=== PATIENT | male | born 1980 | race Caucasian/White ===

== ENCOUNTER 2016-10-07 15:17 | Emergency (ER) | payer SELFPAY ==
[~2016-10-07] VITALS: Ht 167.6 cm; Wt 60.0 kg
[~2016-10-07 15:17] MED LIST: IBUP-232 PO; Z.0.NO CURRENT MEDS; ZITH500T PO
[2016-10-07 15:31] VITALS: BP 130/86; PULSE 76; RESP 24; TEMP 97.7; O2SAT 99
[2016-10-07] MEDS ORDERED: XANA2TAB2 PO (15:42)
--- NOTE | 2016-10-07 15:42 | PD ---
Physical Exam Date Seen by Provider: Oct 07, 2016 Time Seen by Provider: 15:38 Narrative 35 y/o male presents with laceration to right proximal middle finger from broken car door. Pain /10. Patient reports distal numbness and question decreased flexion. Unknown Last tetanus. V/S Stable. Bleeding controlled. Awaiting bed placement. Data Data Last Documented VS Vital Signs Date Time Temp Pulse Resp B/P Pulse Ox O2 Delivery O2 Flow Rate FiO2 10/07/16 15:31 97.7 76 24 130/86 99 Room Air [facility] Medical Record Reviewed: Yes Supervised Visit with ALTON: Yes Condition: Stable Rick Nogueira Oct 07, 2016 15:42
[2016-10-07] MEDS ORDERED: METH40TA PO (15:43)
--- NOTE | 2016-10-07 16:02 | PD ---
HPI Chief Complaint: Laceration/Skin Injury Time Seen by Provider: 16:02 Travel History International Travel<30 days: No Contact w/Intl Traveler<30days: No Traveled to known affect area: No History of Present Illness HPI 35-year-old male presents to the emergency Department with complaint of a laceration to his right third digit from opening a car door and handle breaking off and cutting his finger. Unknown tetanus vaccination status. Denies paresthesias, loss of sensation, decreased range of motion, decreased strength to the affected finger. Has applied a bandage and pressure to control bleeding. Has not taken any medications or tried any other treatments to repeat his symptoms. Has no other medical complaints. No other modifying factors or associated signs and symptoms. PFSH Past Medical History Asthma: Yes (exercise induced asthma) Anxiety: Yes Depression: Yes Tetanus Vaccination: Unknown Social History Alcohol Use: No Tobacco Use: No (quit) Substance Use: No Allergies-Medications (Allergen,Severity, Reaction): Coded Allergies: No Known Allergies (Verified , 06/09/09) Reported Meds & Prescriptions Reported Meds & Active Scripts Active Ibuprofen 800 Mg Tab 800 Mg PO Q6HR PRN Keflex (Cephalexin) 500 Mg Cap 500 Mg PO Q8H 7 Days Reported Methadone (Methadone HCl) 40 Mg Tab 40 Mg PO DAILY Xanax (Alprazolam) 2 Mg Tab 2 Mg PO BID PRN Review of Systems Except as stated in HPI: all other systems reviewed are Neg Physical Exam Narrative GENERAL: Well-nourished, well-developed male patient, in no acute distress SKIN: Warm and dry. Approximately 2 cm laceration to the ventral aspect of the right third digit between the MCP and PIP joints. Finger with full range of motion, sensory intact, and good opposition. Without erythema, edema. Minimal amount of bright red drainage. HEAD: Atraumatic. Normocephalic. EYES: Pupils equal and round. No scleral icterus. No injection or drainage. ENT: Mucosa pink and moist. Airway patent. NECK: Trachea midline. CARDIOVASCULAR: Regular rate. RESPIRATORY: No accessory muscle use. GASTROINTESTINAL: Flat. MUSCULOSKELETAL: No obvious deformities. No clubbing. No cyanosis. No edema. NEUROLOGICAL: Awake and alert. Oriented 3. No obvious cranial nerve deficits. Motor grossly within normal limits. Normal speech. PSYCHIATRIC: Appropriate mood and affect; insight and judgment normal. Data Data Last Documented VS Vital Signs Date Time Temp Pulse Resp B/P Pulse Ox O2 Delivery O2 Flow Rate FiO2 10/07/16 15:31 97.7 76 24 130/86 99 Room Air Orders Tetanus/Diphtheria Tox Adult (Tetanus/Di (10/07/16 16:15) Bupivacaine Pf 0.5% Inj (Marcaine Pf 0.5 (10/07/16 16:15) Lidocaine 1% Inj (50 Ml) (Xylocaine 1% I (10/07/16 16:15) MDM Medical Decision Making Medical Screen Exam Complete: Yes Emergency Medical Condition: Yes Medical Record Reviewed: Yes Differential Diagnosis Laceration, contusion, abrasion Narrative Course 35-year-old male with laceration to his right third digit. Tetanus updated in the ER. Fingers with full range of motion, sensory intact and good opposition. The my procedure note for laceration repair. Keflex and ibuprofen prescribed for home. Instructed patient to return to the emergency department or follow up primary care in 7-10 days for suture removal. Patient verbalizes understanding and agreement with treatment plan. Patient is medically cleared and stable for discharge. Discussed reasons to return to the emergency department. Instructed patient to follow up with primary care provider. Patient agrees with treatment plan. The patients vital signs are stable and the patient is stable for outpatient follow-up and treatment. Patient discharged home, stable and in no acute distress. Procedures Procedure Narrative LACERATION LOCATION: Ventral aspect of right third finger in between the MCP and PIP joints LENGTH: 2 cm NUMBER OF STITCHES/KAYY: 7 simple interrupted sutures REPAIR: The area of the laceration was prepped with Betadine and sterilely draped. The finger was digitally blocked with 1% lidocaine and 0.5% bupivacaine. The wound was copiously irrigated and explored without evidence of foreign body , tendon injury or neurovascular injury. The wound was closed using 4-0 Prolene. This was a single layer repair. A sterile dressing was applied. The patient was advised to keep the dressing clean and dry. Patient tolerated the procedure well. Diagnosis Primary Impression: Laceration of finger of right hand Qualified Code: S61.219A - Laceration of finger of right hand, initial encounter Referrals: Primary Care Physician Patient Instructions: Acute Wound Care (ED), Care For Your Stitches (ED), Finger Laceration (ED), General Instructions Departure Forms: Tests/Procedures, Work Release Enter return to work date: Oct 09, 2016 Additional Instructions: Refer to acute wound care instructions for wound care and care for your stitches Keep area clean and dry Limit right middle finger activity to decrease risk of sutures coming undone Ibuprofen or Tylenol as directed and as needed for pain and inflammation Ice pack to area as needed to decrease pain Return to the emergency department or follow-up with her primary care provider in 7-10 days for suture removal Follow up with primary care provider Return to the emergency department immediately with worsening of symptoms, particularly if reddened streaks up or down the affected extremity from the suture site, fever, numbness/tingling in the affected extremity, loss of sensation in the affected extremity, severe swelling of the affected Med/Other Pt SpecificInfo: Prescription(s) given Scripts Ibuprofen 800 Mg [id number] Mg PO Q6HR PRN (PAIN) #30 TAB Ref 0 Prov:Nanette Joe 10/07/16 Cephalexin (Keflex)500 Mg [id number] Mg PO Q8H 7 Days Ref 0 Prov:Nanette Joe 10/07/16 Disposition: 01 DISCHARGE HOME Condition: Stable Nanette Joe Oct 07, 2016 16:02
[2016-10-07] MEDS ORDERED: IBUP800T23 PO (16:04)
[2016-10-07] MEDS ORDERED: CEPH-460 PO (16:04)
[2016-10-07] MEDS ORDERED: LIDOCAINE HCL 1% 50 ML VIAL INFIL ONE (16:15)
[2016-10-07] MEDS ORDERED: TETANUS/DIPHTHERIA TOXOID ADULT 0.5 ML VIAL IM ONE (16:15)
[2016-10-07] MEDS ORDERED: BUPIVACAINE HCL PF 0.5% 10 ML VIAL INFIL ONE (16:15)
== END 2016-10-07 17:20 | disposition home or self-care (01) ==
LOC: NEPK 15:17
DX: S61.212A Laceration without foreign body of right middle finger without damage to nail, initial encounter (principal); Z23 Encounter for immunization; J45.990 Exercise induced bronchospasm; Z87.891 Personal history of nicotine dependence; W45.8XXA Other foreign body or object entering through skin, initial encounter; Y93.89 Activity, other specified; Y92.9 Unspecified place or not applicable; Y99.8 Other external cause status
CPT/HCPCS: 12001; 90471; 90714

== ENCOUNTER 2016-10-18 15:32 | Emergency (ER) | payer SELFPAY ==
[~2016-10-18] VITALS: Ht 167.6 cm; Wt 65.0 kg
[~2016-10-18 15:32] MED LIST changes: +CEPH-460 PO; -IBUP-232 PO; +IBUP800T23 PO; +METH40TA PO; +XANA2TAB2 PO; -Z.0.NO CURRENT MEDS; -ZITH500T PO
[2016-10-18 15:34] VITALS: BP 110/58; PULSE 64; RESP 18; TEMP 98.5; O2SAT 100
--- NOTE | 2016-10-18 15:41 | PD ---
Physical Exam Time Seen by Provider: 15:41 Narrative 35 y/o male presents for suture removal. Vital signs reviewed. Seen at triage desk. Awaiting bed placement. Data Data Last Documented VS Vital Signs Date Time Temp Pulse Resp B/P Pulse Ox O2 Delivery O2 Flow Rate FiO2 10/18/16 15:34 98.5 64 18 110/58 100 MDM Medical Record Reviewed: Yes Supervised Visit with ALTON: Elie Henriquez October 18, 2016 15:41
--- NOTE | 2016-10-18 16:03 | PD ---
HPI Chief Complaint: Wound/Suture/Staple Re-Check Time Seen by Provider: 16:00 Travel History International Travel<30 days: No Contact w/Intl Traveler<30days: No Traveled to known affect area: No History of Present Illness HPI 35-year-old male presents to emergency department requesting sutures to be removed from his right middle finger. They've been in place for about 9 days. He denies fever, vomiting. Denies erythema, edema, drainage from the wound site. Has no other medical complaints. No other modifying factors or associated signs and symptoms. PFSH Past Medical History Asthma: Yes (exercise induced asthma) Anxiety: Yes Depression: Yes Social History Alcohol Use: No Tobacco Use: No (quit) Substance Use: No Allergies-Medications (Allergen,Severity, Reaction): Coded Allergies: No Known Allergies (Verified , 10/18/16) Reported Meds & Prescriptions Reported Meds & Active Scripts Active Ibuprofen 800 Mg Tab 800 Mg PO Q6HR PRN Keflex (Cephalexin) 500 Mg Cap 500 Mg PO Q8H 7 Days Reported Methadone (Methadone HCl) 40 Mg Tab 40 Mg PO DAILY Xanax (Alprazolam) 2 Mg Tab 2 Mg PO BID PRN Review of Systems Except as stated in HPI: all other systems reviewed are Neg Physical Exam Narrative GENERAL: Well-nourished, well-developed male patient, in no acute distress SKIN: Warm and dry. Laceration to the anterior aspect of right middle finger in between the MCP and PIP joint that is well approximated with sutures intact and without erythema, edema, drainage. No signs of infection. HEAD: Atraumatic. Normocephalic. EYES: Pupils equal and round. No scleral icterus. No injection or drainage. ENT: Mucosa pink and moist. Airway patent. NECK: Trachea midline. CARDIOVASCULAR: Regular rate. RESPIRATORY: No accessory muscle use. GASTROINTESTINAL: Flat. MUSCULOSKELETAL: No obvious deformities. No clubbing. No cyanosis. No edema. NEUROLOGICAL: Awake and alert. Oriented 3. No obvious cranial nerve deficits. Motor grossly within normal limits. Normal speech. PSYCHIATRIC: Appropriate mood and affect; insight and judgment normal. Data Data Last Documented VS Vital Signs Date Time Temp Pulse Resp B/P Pulse Ox O2 Delivery O2 Flow Rate FiO2 10/18/16 15:34 98.5 64 18 110/58 100 MDM Medical Decision Making Medical Screen Exam Complete: Yes Emergency Medical Condition: Yes Medical Record Reviewed: Yes Differential Diagnosis Suture removal, wound recheck, medical clearance Narrative Course 35-year-old male presents for suture removal to the right middle finger. No signs of infection. Sutures removed. Patient tolerated well. Patient verbalizes understanding and agreement with treatment plan. Patient is medically cleared and stable for discharge. Discussed reasons to return to the emergency department. Instructed patient to follow up with primary care provider. Patient agrees with treatment plan. The patients vital signs are stable and the patient is stable for outpatient follow-up and treatment. Patient discharged home, stable and in no acute distress. Diagnosis Primary Impression: Encounter for removal of sutures Referrals: Primary Care Physician Patient Instructions: General Instructions, Stitches Removal (ED) Departure Forms: Tests/Procedures, Work Release Enter return to work date: October 19, 2016 Additional Instructions: Ibuprofen or Tylenol as instructed and as needed for pain and inflammation Follow-up with primary care provider Return to the emergency department immediately with worsening of symptoms Med/Other Pt SpecificInfo: No Change to Meds, No Meds Exist/No RX given Disposition: 01 DISCHARGE HOME Condition: Stable Nanette Joe October 18, 2016 16:03
== END 2016-10-18 16:18 | disposition home or self-care (01) ==
LOC: NEPK 15:45
DX: S61.212D Laceration without foreign body of right middle finger without damage to nail, subsequent encounter (principal); Z48.02 Encounter for removal of sutures; X58.XXXD Exposure to other specified factors, subsequent encounter
CPT/HCPCS: 99281